=== PATIENT | male | born 1995 | race Asian ===

== ENCOUNTER 2017-03-11 13:53 | Emergency (ER) | payer SELFPAY ==
[~2017-03-11] VITALS: Ht 188 cm; Wt 109.7 kg
[2017-03-11 14:02] VITALS: BP 132/79
[2017-03-11] MEDS ORDERED: DIPH,PERTUSS(ACELL),TET VAC/PF 0.5 ML IM-VACC ONE ×2 (14:30→14:47)
[2017-03-11] MEDS ORDERED: LIDOCAINE 1%, 20ML SQ ONE (14:30)
[2017-03-11] MEDS ORDERED: LIDOCAINE 1%, 10ML ONE (14:47)
[2017-03-11] MEDS ORDERED: BACITRACIN ZINC OINT 500U/GM, 0.9 GM ONE (15:24)
== END 2017-03-11 15:45 | disposition home or self-care (01) ==
LOC: ED 15:40
DX: S61.412A Laceration without foreign body of left hand, initial encounter (principal); W01.0XXA Fall on same level from slipping, tripping and stumbling without subsequent striking against object, initial encounter; Y93.89 Activity, other specified; Y99.8 Other external cause status; Y92.89 Other specified places as the place of occurrence of the external cause
CPT/HCPCS: 90471; 90715